=== PATIENT | male | born 1960 | race Hispanic/Latino ===

== ENCOUNTER 2018-01-17 21:41 | Emergency (ER) | payer SELFPAY ==
[2018-01-17] MEDS ORDERED: PANTOPRAZOLE SODIUM 40 MG TABLET.DR PO ONE (22:34)
[2018-01-17] MEDS ORDERED: LIDOCAINE 5% TOPICAL PATCH TP ONE (22:34)
== END 2018-01-17 23:26 | disposition home or self-care (01) ==
LOC: EDH 21:41
DX: K29.70 Gastritis, unspecified, without bleeding (principal); B02.9 Zoster without complications